=== PATIENT | male | born 1975 | race African-American/Black ===

== ENCOUNTER 2017-12-14 23:19 | Emergency (ER) | payer BC ==
[2017-12-15] MEDS: LABETALOL HCL 200 MG TABLET PO (00:10)
[2017-12-15] MEDS: amLODIPine BESYLATE 5 MG TABLET PO (00:11)
[2017-12-15] MEDS: cloNIDine HCL 0.1 MG TABLET PO (00:11)
== END 2017-12-15 01:45 | disposition home or self-care (01) ==
LOC: ER 12-15 01:45
DX: I10 Essential (primary) hypertension (principal); E11.9 Type 2 diabetes mellitus without complications; Z88.0 Allergy status to penicillin
CPT/HCPCS: 99284

== ENCOUNTER 2019-03-07 19:37 | Emergency (ER) | payer BC ==
[~2019-03-07] VITALS: Ht 182.9 cm; Wt 115.7 kg
[~2019-03-07 19:37] MED LIST: AMLO10TA8 PO; CLON0.1T PO; GLIP10TA24 PO; HYDR-2869 PO; LISI-130 PO; METO-239 PO; METO25TA4 PO; PANT40TA77 PO; SUCR1TAB35 PO
[2019-03-07 19:47] VITALS: BP 148/89
--- NOTE | 2019-03-07 20:16 | PHYS DOC ---
Past Medical History Past Medical History: Diabetes-Type II, Hypertension, Stroke Additional Past Medical Histor: cataract Past Surgical History: Other Additional Past Surgical Histo: ULCER SX IN 2016 Alcohol Use: Rarely Drug Use: None Adult General Chief Complaint Chief Complaint: MULTIPLE COMPLAINTS [facility] Patient is a 43-year-old male with poorly controlled diabetes who presents with some visual changes. He states he has had ongoing IV problems including a cataract that have been evaluated in the past. He states his blood sugars have been up and down recently and is noted that his vision is getting worse. The right eye seems to be worse than the left. He thinks the right eye is the one that he had a cataract in. He denies any pain. He's had no nausea or vomiting. He is taking his medication as directed.[] Review of Systems Review of Systems Constitutional: Denies fever or chills [] Eyes: Reports change in visual acuity[] HENT: Denies nasal congestion or sore throat [] Respiratory: Denies cough or shortness of breath [] Cardiovascular: No additional information not addressed in HPI [] GI: Denies abdominal pain, nausea, vomiting, bloody stools or diarrhea [] : Denies dysuria or hematuria [] Musculoskeletal: Denies back pain or joint pain [] Integument: Denies rash or skin lesions [] Neurologic: Denies headache, focal weakness or sensory changes [] Endocrine: Denies polyuria or polydipsia [] All other systems were reviewed and found to be within normal limits, except as documented in this note. Allergies Allergies Allergies Coded Allergies Type Severity Reaction Last Updated Verified Penicillins Allergy Intermediate hives 20/16 Yes Physical Exam Physical Exam Constitutional: Well developed, well nourished, no acute distress, non-toxic appearance. [] HENT: Normocephalic, atraumatic, bilateral external ears normal, oropharynx moist, no oral exudates, nose normal. [] Eyes: PERRLA, EOMI, conjunctiva normal, no discharge, negative ocular compression test bilaterally. [] Neck: Normal range of motion, no tenderness, supple, no stridor. [] Cardiovascular:Heart rate regular rhythm, no murmur [] Lungs & Thorax: Bilateral breath sounds clear to auscultation [] Abdomen: Bowel sounds normal, soft, no tenderness, no masses, no pulsatile masses. [] Skin: Warm, dry, no erythema, no rash. [] Back: No tenderness, no CVA tenderness. [] Extremities: No tenderness, no cyanosis, no clubbing, ROM intact, no edema. [] Neurologic: Alert and oriented X 3, normal motor function, normal sensory function, no focal deficits noted. [] Psychologic: Affect normal, judgement normal, mood normal. [] Current Patient Data Vital Signs Vital Signs Date Time Temp Pulse Resp B/P (MAP) Pulse Ox O2 Delivery O2 Flow Rate FiO2 03/07/19 19:47 99.1 79 18 148/89 (108) 98 Room Air 99.1 Lab Values Laboratory Tests Test 03/07/19 19:56 Glucose (Fingerstick) 260 mg/dL (70-99) H EKG EKG [] Radiology/Procedures Radiology/Procedures [] Course & Med Decision Making Course & Med Decision Making Pertinent Labs and Imaging studies reviewed. (See chart for details) [ED course: Evaluation reveals a 43-year-old male with diabetes. He has some visual changes. I did explain to the patient and only defined an breaker machine operator to see. I've given him our breaker machine operator office to call.] Dragon Disclaimer Dragon Disclaimer This electronic medical record was generated, in whole or in part, using a voice recognition dictation system. Departure Departure Impression: Primary Impression: Cataract associated with type 2 diabetes mellitus Disposition: 01 HOME, SELF-CARE Condition: STABLE Referrals: ATA LAGUERRE DO (PCP) SUN VELASQUEZ MD Call Dr. Velasquez's office first thing in the morning to schedule follow-up Patient Instructions: Cataract, Diabetic Retinopathy Additional Instructions: It is important that she follow with an fisheries specialist very soon MILLIE SANDOVAL DO Mar 07, 2019 20:16
== END 2019-03-07 20:23 | disposition home or self-care (01) ==
LOC: ER 19:37
DX: E11.36 Type 2 diabetes mellitus with diabetic cataract (principal); I10 Essential (primary) hypertension; Z86.73 Personal history of transient ischemic attack (TIA), and cerebral infarction without residual deficits; Z88.0 Allergy status to penicillin
CPT/HCPCS: 82962; 99283